=== PATIENT | male | born 1950 | race Caucasian/White ===

== ENCOUNTER 2017-04-27 08:41 | Day surgery (SDC) | payer BC ==
[~2017-04-27 08:41] MED LIST: RINGERS SOLUTION,LACTATED 1,000 ML IV PRN
--- OUTSIDE RECORDS SUMMARY | 2017-04-27 08:47 | XMS REPORT | Clinical Summary ---
:1950 Author Organization [employer] [place] [address] Care Team Providers Name Role Phone Unavailable Primary Care Provider Unavailable Source Comments This disclosure is being made pursuant to the [employer] program and maynot contain all information available regarding this patient.[facility] Allergies Not on File Current Medications Be aware that medications may not be up to date as of this document. Alwaysverify current medications with the patient. Not on file Active Problems Not on file Social History Tobacco Use Types Packs/Day Years Used Date Never Assessed Sex Assigned at Date Recorded Not on file Last Filed Vital Signs Not on file Plan of Treatment Health Maintenance Due Date Last Done Comments Tetanus/Pertussis (1 - Tdap) 1970 Colonoscopy 2001 Well Adult Visit 2001 Zoster Vaccine 60+ 2011 Pneumococcal Low/Medium Risk 65+ (1 of 2 - PCV13) 2016 INFLUENZA IMMUNIZATION (#1) 2017 Results Not on filefrom Last 3 Months
[2017-04-27] MEDS ORDERED: RINGERS SOLUTION,LACTATED 1,000 ML IV PRN (11:49)
[2017-04-27 13:25] VITALS: BP 152/88
--- NOTE | 2017-04-27 15:51 | OR ---
Operative Report - Dictated Report Narrative: OPERATIVE REPORT DATE OF OPERATION: 04/27/2017 PREOPERATIVE DIAGNOSIS: History of colon polyps POSTOPERATIVE DIAGNOSIS: Severe sigmoid diverticulosis. Two 2-3mm polyps-- one in the ascending colon and one in the proximal transverse colon (pathology pending) OPERATION: Colonoscopy with hot biopsy forceps polypectomy 2 SURGEON: Derek Rivera MD ANESTHESIA: KAI Hodge CRNA INDICATIONS FOR PROCEDURE: The patient is a 66-year-old male who presents self- referred for colon surveillance. He had 2 tubular adenomas and a hyperplastic polyp [place] [address] Vital. Repeat colonoscopy in 2009 revealed no polyps. He has known diverticulosis FINDINGS: Severe sigmoid diverticulosis. Two 2-3 mm areas of polypoid change, one in the ascending colon and one in the proximal transverse colon (pathology pending) NARRATIVE OF PROCEDURE: The patient was identified in the holding area, and prior to the administration of anesthetic, a multidisciplinary timeout was observed. With the patient in the left lateral position and after the administration of intravenous sedation, the perineum was inspected. There was no evidence of pilonidal disease or skin breakdown. The external appearance of the anus was normal. There was a pedunculated skin tag on the right buttock. Sphincter tone was good. The flexible fiberoptic colonoscope was inserted into the rectum which was insufflated with air. The rectal mucosa and submucosal vascular pattern appeared normal, the prep was seen to be complete. The scope was advanced through the sigmoid colon, which contained numerous large non- impacted noninflamed diverticular openings. The scope was advanced up the descending colon, and around the splenic flexure where the triangular haustral architecture of the transverse colon was seen. The scope was advanced across the transverse colon, around the hepatic flexure to the cecum, where the confluence of tenia and the ileocecal valve were identified. The mucosa at this level appeared normal. The scope was then slowly withdrawn in a circular fashion so that all aspects of colonic mucosa were inspected. The proximal colon was somewhat capacious and character but normal in course. The sigmoid colon was redundant with severe diverticulosis. The haustral architecture of the colon appeared well preserved throughout with no evidence of external compression. The mucosa and submucosal vascular pattern appeared normal, specifically there was no gross evidence to suggest colitis or inflammatory bowel disease and no AV malformations were seen. Two 2-3mm polyps were encountered--one in the ascending colon and one in the proximal transverse colon. These were biopsied and then thoroughly destroyed with electrocautery. The sites were seen to be complete and hemostatic. The scope was gradually withdrawn to the level of the rectum. As much insufflated air as possible was removed. The scope was withdrawn from the patient and the procedure terminated. The patient tolerated the anesthetic and procedure well without complication and was transferred back to the ambulatory surgery area awake and in stable condition. The patient remained stable throughout a period of postoperative observation. He denied abdominal discomfort, was able to tolerate by mouth intake, and was up without assistance. I shared the operative findings with the patient and he was given copies of the photographs which appear in the medical record. He was discharged home with instructions not to engage in hazardous activity today, but may resume normal activity tomorrow, and advance diet as tolerated. He is to continue those medications as listed in the history and physical exam. I made arrangements to contact him with the biopsy reports and will make additional recommendations for treatment and follow-up based upon those results. A pamphlet on diverticular disease was reviewed with him and given to him, and a trial of Benefiber or equivalent suggested. Reviewed at O electronically signed
== END 2017-04-27 08:42 | disposition home or self-care (01) ==
LOC: AMB 08:41
PROVIDERS: ATTEND Surgery
PROC: 0DBL8ZX Excision of Transverse Colon, Via Natural or Artificial Opening Endoscopic, Diagnostic (ICD-10-PCS; 2017-04-27)
PROC: 0DBK8ZX Excision of Ascending Colon, Via Natural or Artificial Opening Endoscopic, Diagnostic (ICD-10-PCS; principal; 2017-04-27 10:45)
DX: Z12.11 Encounter for screening for malignant neoplasm of colon (principal); D12.2 Benign neoplasm of ascending colon; D12.3 Benign neoplasm of transverse colon; K57.30 Diverticulosis of large intestine without perforation or abscess without bleeding; I10 Essential (primary) hypertension; Z68.25 Body mass index [BMI] 25.0-25.9, adult; Z87.891 Personal history of nicotine dependence